=== PATIENT | female | born 1965 | race Caucasian/White ===

== ENCOUNTER 2016-11-08 08:56 | Day surgery (SDC) | payer OTHER ==
--- NOTE | 2016-11-04 21:32 | HP ---
PREOPERATIVE HISTORY AND PHYSICAL: DATE OF ADMISSION: 11/08/16 CHIEF COMPLAINT: Left ankle pain. HISTORY OF PRESENT ILLNESS: Ms. Faulkner is a 51-year-old female who has been followed by Dr. Wilkins for ongoing pain to the lateral aspect of her hind foot. 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 She has tried immobilization of the hind foot. She has tried activity modification ; however, she continues to have persistent pain. She has also tried physical therapy with no relief. She reports no injury to the ankle at any point; however, the pain has just gradually gotten worse. She has had multiple MRI's of the ankle, which showed some stress related changes around the calcaneocuboid joint and chronic plantar fasciitis. She also has some edema throughout the peroneal tendons. She wishes to proceed with surgical intervention as she has failed conservative treatments. PAST MEDICAL HISTORY: None. PAST SURGICAL HISTORY: None. CURRENT MEDICATIONS: None. ALLERGIES: PENICILLIN. FAMILY HISTORY: Significant for heart trouble and diabetes. SOCIAL HISTORY: The patient lives with a friend. She is employed as a behavioral therapist. She has never smoked. She occasionally consumes alcohol. She does not exercise regularly. REVIEW OF SYSTEMS: Constitutional: Negative for recent hospitalizations, fevers, chills, night sweats or weight loss. Head: Negative for headaches, lightheadedness or balance problems. Cardiovascular: Negative for chest or arm pain on exertion, history of heart attack problem or heart palpitations, high blood pressure embolism or deep vein thrombosis. Respiratory: Negative for chronic cough, shortness of breath with exertion, asthma or COPD. Gastrointestinal: Negative for nausea, vomiting, diarrhea, constipation or GERD. Genitourinary: Negative for nighttime urination, frequency of urination, urinary tract infections or kidney problems. Musculoskeletal: Negative for chronic back pain or recent fracture. Skin: Negative for rashes, lesions, lumps or sores. Neurologic: Negative for seizure, stroke, epilepsy, depression or anxiety. Endocrine: Negative for diabetes or thyroid problems. Hematology: Negative for easy bleeding, bruising or anemia. PHYSICAL EXAMINATION GENERAL: She is a well-developed, well-nourished pleasant female, in no acute distress at rest. She is alert and oriented x3, with appropriate mood and affect. VITAL SIGNS: The patient is 5 feet 5 inches, 206 pounds. Blood pressure 133/79 , pulse of 74. HEENT: Normocephalic, atraumatic. Hearing and vision are grossly intact. NECK: Her trachea is midline. RESPIRATORY: Lungs are clear to auscultation bilaterally. No wheezes, rales, or rhonchi. CARDIOVASCULAR: Regular rate and rhythm. No murmurs, rubs, or gallops. Normal S1 and S2. ABDOMEN: Soft, nondistended, nontender. Normal bowel sounds. EXTREMITIES: Exam of the left lower extremity, skin is intact without abrasions or open wounds. There is no edema, ecchymosis or gross deformities. She continues to have significant tenderness to palpation along the peroneal tendons and lateral aspect of the hind foot. She has full hind foot range of motion with 5/5 strength throughout, although resisted eversion of the ankle causes significant discomfort. Sensation to light touch is intact. She has a 2 + dorsalis pedis pulse. IMPRESSION: Left ankle peroneal tendonitis. PLAN: The patient is to undergo left ankle peroneal tendon repair with possible tenodesis by Dr. Wilkins on 11/08/16. The risks, benefits and postoperative course were discussed with the patient at length and she would like to proceed. All of her questions were answered to her full satisfaction. We will follow up with the patient in the postoperative phase. BECKY BLANCO [id number]/[facility] #: [id number] MTDJanee
[~2016-11-08 08:56] MED LIST: Buffered Lidocaine 1% SYR 3ML* 3 ML/SYR SYRINGE INTRADERM ONE; Famotidine IV* 10 MG/ML 2 ML (20 mg) IV ONE; Morphine INJ* 2 MG/ML 1 ML CARPUJECT IV PRN; PROCHLORPERAZINE INJ 5 MG/ML 2 ML VIAL IV PRN; fentaNYL* 50 MCG/ML 2 ML VIAL (100 MCG VIAL) IV PRN; oxyCODONE/Acetamin 5/325 MG* TAB PO PRN
[2016-11-08] MEDS ORDERED: Clindamycin 900 MG IVPREMIX(* 900 MG/50 ML SDV IV ONE (09:21)
[2016-11-08] MEDS ORDERED: Famotidine IV* 10 MG/ML 2 ML (20 mg) ONE (09:21)
[2016-11-08 09:41] LABS: Manual Entry Verification HAN0055; UR Preg Internal Control QC Line Present
[2016-11-08] MEDS ORDERED: fentaNYL* 50 MCG/ML 2 ML VIAL (100 MCG VIAL) ONE (10:26)
[2016-11-08] MEDS ORDERED: Midazolam* 1 MG/ML 5 ML VIAL (5 MG) ONE (10:27)
[2016-11-08] MEDS ORDERED: KETAMINE HCL* 50 MG/ML 10 ML VIAL ONE (10:27)
[2016-11-08] MEDS ORDERED: Bupivacaine 0.5% SDV PF* 30 ML VIAL ONE (11:44)
[2016-11-08] MEDS ORDERED: Propofol* 10 MG/ML 20 ML BTL IV PUSH ONE (12:14)
[2016-11-08] MEDS ORDERED: Ondansetron INJ* 2 MG/ML VIAL ONE (12:14)
[2016-11-08] MEDS ORDERED: Lidocaine 2% PF * 5 ML VIAL ONE (12:14)
[2016-11-08] MEDS ORDERED: Dexamethasone IV* 4 MG/ML 1 ML (4 MG) ONE (12:14)
[2016-11-08] MEDS ORDERED: Morphine INJ* 10 MG/ML 1 ML CARPUJECT ONE (12:16)
[2016-11-08] MEDS ORDERED: Ketorolac INJ* 30 MG/ML 1 ML VIAL ONE (12:36)
[2016-11-08 14:05] VITALS: BP 140/85
--- NOTE | 2016-11-08 22:46 | OP ---
DATE OF OPERATION: 11/08/16 - [facility] DATE OF : 65 ATTENDING SURGEON: Davey Wilkins MD LOFT WORKER APPRENTICE: Annemarie Morgan PA-C ANESTHESIOLOGIST: Geoff Gómez MD ANESTHESIA: General PRE-OP DIAGNOSES: Persistent pain over the left peroneal tendons, possible peroneal tendinitis. POST-OP DIAGNOSES: Subluxation of peroneal tendons and prominent peroneal tubercle to the feet. OPERATIVE PROCEDURE: Excision of peroneal tubercle and groove deepening, left peroneal tendons. DESCRIPTION OF PROCEDURE: The patient was taken to the operating room where a longitudinal incision was made over the distal fibula toward the sinus tarsi. We incised distally tracing the peroneus longus all the way down to the os peroneum, which was directly visualized. It was unencumbered and intact. There was no fracture noted of the os peroneum. There was a prominent peroneal tubercle, which was removed from lateral border of the calcaneus with a rongeur. The peroneus brevis also was exposed all the way to the base of fifth metatarsal and noted to be intact. We opened up the sheath behind the fibula by reflecting the retinaculum posteriorly. We noted a very shallow groove and essentially just a small prominence of the distal end of the fibula, but no groove at all proximally. An osteotomy was performed along the junction of the posterior to lateral cortex driving the posterior cortex anteriorly with a small bone tamp. We then repaired the reticulum over the peroneal tendons with 0 Vicryl through bone sutures and Bob Nayan suture for the reticulum. We irrigated the soft tissues closing with Vicryl and rene and a compression dressing and plaster splint applied. [id number]/[facility] #: [id number] [facility]
== END 2016-11-08 14:48 | disposition home or self-care (01) ==
LOC: OR 08:56
PROVIDERS: ATTEND Orthopaedic Surgery
DX: M67.874 Other specified disorders of tendon, left ankle and foot (principal)
CPT/HCPCS: 81025; C1776; J1100; J1885; J2250; J2270; J2405; J2704; J3010